=== PATIENT | female | born 1950 | race Hispanic/Latino ===

== ENCOUNTER 2018-11-28 00:07 | Observation (INO) | payer OTHER ==
[2018-11-28 00:52] LABS: BASOPHILS % (AUTO) 0.8 % (0.0-5.0); EOSINOPHILS % (AUTO) 2.9 % (0.0-8.0); HEMATOCRIT 38.6 % (36-48); LYMPHOCYTES % (AUTO) 33.4 % (21.0-51.0); MEAN CORPUSCULAR HEMOGLOBIN 30.5 pg (27.0-33.0); MEAN CORPUSCULAR HGB CONC 34.6 g/dL (32.0-36.0); MEAN CORPUSCULAR VOLUME 88.3 fL (79-99); MONOCYTES % (AUTO) 8.6 % (3.0-13.0); NEUTROPHILS % (AUTO) 54.3 % (40.0-77.0); NUCLEATED RED BLOOD CELLS 0.1 % (0.0-0.19); PLATELET COUNT (AUTO) 206 K/uL (130-400); RED BLOOD CELL COUNT(AUTO) 4.37 MIL/uL (4.00-5.50); WHITE BLOOD COUNT (AUTO) 6.6 K/uL (4.8-10.8)
[2018-11-28 01:10] LABS: CREATININE 0.7 mg/dL (0.5-1.5); POTASSIUM 3.8 mmol/L (3.5-5.1)
[2018-11-28 01:14] LABS: INR 0.97 (0.85-1.15); PARTIAL THROMBOPLASTIN TIME 30.6 SEC (26.3-35.5); PROTHROMBIN TIME 10.2 SEC (9.6-11.6)
[2018-11-28 01:15] LABS: ALBUMIN 3.8 g/dL (3.5-5.0); BILIRUBIN,TOTAL 0.2 mg/dL (0.2-1.0); TOTAL PROTEIN, SERUM 6.8 g/dL (6.0-8.3)
[2018-11-28 01:27] LABS: B-TYPE NATRIURETIC PEPTIDE 19 pg/mL (0-100)
[2018-11-28] MEDS ORDERED: IOHEXOL-350 75 ML VIAL IV ONE (01:54)
[2018-11-28 04:50] LABS: CREATINE KINASE, TOTAL 97 U/L (21-232); MYOGLOBIN 37 ng/mL (10-92); TROPONIN I < 0.04 ng/mL (0.00-0.06)
[2018-11-28 07:30] LABS: CREATINE KINASE, TOTAL 86 U/L (21-232); MYOGLOBIN 38 ng/mL (10-92); TROPONIN I < 0.04 ng/mL (0.00-0.06)
[2018-11-28] MEDS ORDERED: METOPROLOL TARTRATE 25 MG TAB ONE (08:32)
[2018-11-28] MEDS ORDERED: NITROGLYCERIN 1GM/1 INCH PACKET TD ONE (08:32)
[2018-11-28 12:23] LABS: APPEARANCE,URINE Clear (CLEAR); BILIRUBIN,URINE Negative (NEGATIVE); COLOR,URINE Yellow (YELLOW); GLUCOSE, URINE (UA) Negative (NEGATIVE); KETONES,URINE Negative (NEGATIVE); LEUKOCYTE ESTERASE ,URINE Small (NEGATIVE); NITRATE,URINE Negative (NEGATIVE); OCCULT BLOOD,URINE Trace (NEGATIVE); PROTEIN,URINE Negative (NEGATIVE); UROBILINOGEN,URINE 0.2 mg/dL (0.2-1.0)
[2018-11-28 12:30] LABS: BACTERIA,URINE Rare /HPF (None Seen); RBC,URINE 0-1 /HPF (0-1); SQUAMOUS EPITHELIAL CELL,UR Rare /HPF (0-2); WBC,URINE 0-1 /HPF (0-1)
[2018-11-28] MEDS ORDERED: METO-408 PO (13:48)
[2018-11-28] MEDS ORDERED: LEVO25TA9 PO (13:48)
--- NOTE | 2018-11-28 14:06 | NUR ---
SEE DOCTORS ASSESSMENT ON PT BEFORE DISCHARGE.
== END 2018-11-28 14:05 | disposition home or self-care (01) ==
LOC: EDH 00:07 → EDHIP 06:30
PROVIDERS: ADMIT Internal Medicine Cardiovascular Disease; ATTEND Internal Medicine Cardiovascular Disease
DX: R07.89 Other chest pain (principal); I10 Essential (primary) hypertension; E03.9 Hypothyroidism, unspecified; Z79.899 Other long term (current) drug therapy; M35.3 Polymyalgia rheumatica; Z82.49 Family history of ischemic heart disease and other diseases of the circulatory system
CPT/HCPCS: 36415; 71275; 80053; 81001; 82550 ×2; 83874 ×2; 83880; 84484 ×3; 85025; 85378; 85610; 85730; 93005 ×2; 99284; G0378 ×8; Q9967

== ENCOUNTER → 2018-12-03 | Outpatient (CLI) | payer OTHER ==
[~2018-12-03] MED LIST: LEVO25TA9 PO; METO-408 PO
== END | disposition home or self-care (01) ==
LOC: RAH 12:12
PROVIDERS: ATTEND Internal Medicine Cardiovascular Disease
DX: Z13.6 Encounter for screening for cardiovascular disorders (principal)
CPT/HCPCS: 75571

== ENCOUNTER 2023-11-22 05:47 | Observation (INO) | payer MEDICARE, OTHER ==
[~2023-11-22] VITALS: Ht 162.6 cm; Wt 61.2 kg
[2023-11-22] MEDS ORDERED: NIFE20CA9 PO (05:59)
[2023-11-22] MEDS ORDERED: LEVO25CA4 PO (05:59)
[2023-11-22] MEDS ORDERED: LOSA100T59 PO (06:00)
[2023-11-22 06:45] LABS: BASOPHILS # (AUTO) 0.04 K/uL (0.00-0.20); BASOPHILS % (AUTO) 0.6 % (0.0-5.0); EOSINOPHILS # (AUTO) 0.06 K/uL (0.00-0.70); EOSINOPHILS % (AUTO) 0.9 % (0.0-8.0); HEMATOCRIT 36.5 % (36-48); IMMATURE GRANULOCYTE ABSOLUTE 0.01 K/uL (0-1); LYMPHOCYTES # (AUTO) 1.3 K/uL (1.0-4.8); LYMPHOCYTES % (AUTO) 18.8 % (21.0-51.0); MEAN CORPUSCULAR HEMOGLOBIN 29.4 pg (27.0-33.0); MEAN CORPUSCULAR HGB CONC 34.5 g/dL (32.0-36.0); MEAN CORPUSCULAR VOLUME 85.1 fL (79-99); MONOCYTES # (AUTO) 0.4 K/uL (0.1-1.0); MONOCYTES % (AUTO) 6.5 % (3.0-13.0); NEUTROPHILS % (AUTO) 73.1 % (40.0-77.0); PLATELET COUNT (AUTO) 209 K/uL (130-400); RED BLOOD CELL COUNT(AUTO) 4.29 MIL/uL (4.00-5.50); RED CELL DISTRIBUTION WIDTH 13.7 % (11.0-15.5); WHITE BLOOD COUNT (AUTO) 6.8 K/uL (4.8-10.8)
[2023-11-22 06:56] LABS: APPEARANCE,URINE CLEAR (CLEAR); BILIRUBIN,URINE NEGATIVE (NEGATIVE); COLOR,URINE LIGHT-YELLOW (YELLOW); GLUCOSE, URINE (UA) NEGATIVE (NEGATIVE); KETONES,URINE NEGATIVE (NEGATIVE); LEUKOCYTE ESTERASE ,URINE 500 Leu/uL (NEGATIVE); NITRATE,URINE NEGATIVE (NEGATIVE); PH,URINE 6.5 (5.0-8.0); PROTEIN,URINE NEGATIVE (NEGATIVE); UROBILINOGEN,URINE 0.2 mg/dL (0.2-1.0)
[2023-11-22 07:00] LABS: ADD UA MICROSCOPIC YES
[2023-11-22 07:05] LABS: ALBUMIN 3.5 g/dL (3.5-5.0); BILIRUBIN,TOTAL 0.6 mg/dL (0.2-1.0); CREATININE 0.7 mg/dL (0.5-1.0); POTASSIUM 3.6 mmol/L (3.5-5.1); TOTAL PROTEIN, SERUM 7.1 g/dL (6.0-8.3)
[2023-11-22 07:34] LABS: SARS-CoV-2, RNA, NAAT NEGATIVE SARS CoV-2 (NEGATIVE)
[2023-11-22 07:38] LABS: INFLUENZA TYPE A Negative For Type A (NEGATIVE); INFLUENZA TYPE B Negative For Type B (NEGATIVE)
[2023-11-22 07:43] LABS: BACTERIA,URINE RARE /HPF (None Seen); SQUAMOUS EPITHELIAL CELL,UR RARE /HPF (0-2)
[2023-11-22] MEDS ORDERED: IOHEXOL 350 MG/ML 100ML INFUS..BTL IV ONE (08:17)
[2023-11-22] MEDS: LACTATED RINGERS 1000ML 1,095 ML IV ONE (08:19)
[2023-11-22] MEDS: PREDNISONE 20 MG TABLET PO ONE (10:39)
[2023-11-22] MEDS: 0.9%NACL 1000ML 1,000 ML IV SCH (12:59)
[2023-11-22] MEDS: NIFEDIPINE ER 30 MG TAB PO SCH (13:00)
[2023-11-22] MEDS: LOSARTAN 50 MG TABLET PO SCH (13:00)
[2023-11-22] MEDS: CEFTRIAXONE 2GM VIAL IVPB SCH (13:10)
[2023-11-22 13:24] LABS: MAGNESIUM 1.8 mg/dL (1.80-2.40)
[2023-11-22 13:26] LABS: INR 1.01 (0.85-1.15); PROTHROMBIN TIME 10.9 SEC (9.6-11.6)
[2023-11-22] MEDS: PANTOPRAZOLE 40 MG TAB DR PO SCH (13:54)
[2023-11-22 14:15] VITALS: O2SAT 98
[2023-11-22 14:30] VITALS: BP 137/46; PULSE 80; RESP 18
[2023-11-22 14:32] LABS: HEMOGLOBIN A1C 5.9 % (4.0-6.0)
[2023-11-22] MEDS: SODIUM CHLORIDE 3% FOR INHALATION 4 ML/AMP VIAL.NEB IH ONE (17:09)
[2023-11-22] MEDS ORDERED: IpraTROPium/alBUTERol SULFATE 3 ML SOLUTION IH PRN (18:30)
[2023-11-22 20:00] VITALS: BP 127/74; PULSE 87; RESP 18
[2023-11-22 20:15] VITALS: O2SAT 97
[2023-11-22] MEDS: AZITHROMYCIN 500MG+NS 250ML 250 ML IVPB SCH (20:15)
[2023-11-23] VITALS (10 sets, daily range): BP systolic 119–135; BP diastolic 52–68; PULSE 63–91; RESP 16–20; O2SAT 97–98
[2023-11-23] MEDS: BENZONATATE 100 MG CAPSULE PO PRN (05:36)
[2023-11-23 07:38] LABS: CREATININE 0.7 mg/dL (0.5-1.0); POTASSIUM 4.4 mmol/L (3.5-5.1)
[2023-11-23] MEDS: SOLU-MEDROL 40MG VIAL IVP SCH (09:24)
[2023-11-23] MEDS: ENOXAPARIN SODIUM 30 MG/0.3 ML SQ SCH (09:24)
[2023-11-23] MEDS: LOSARTAN 50 MG TABLET PO SCH (09:24)
[2023-11-23 10:13] LABS: RHEUMATOID ARTHRITIS FACTOR 10.7 IU/mL (<14.0)
[2023-11-23] MEDS: SODIUM CHLORIDE 3% FOR INHALATION 4 ML/AMP VIAL.NEB IH ONE (10:59)
[2023-11-24 04:00] VITALS: BP 125/69; PULSE 71; RESP 16
[2023-11-24 05:47] LABS: BASOPHILS # (AUTO) 0.01 K/uL (0.00-0.20); BASOPHILS % (AUTO) 0.1 % (0.0-5.0); EOSINOPHILS # (AUTO) 0.01 K/uL (0.00-0.70); EOSINOPHILS % (AUTO) 0.1 % (0.0-8.0); HEMATOCRIT 35.9 % (36-48); IMMATURE GRANULOCYTE ABSOLUTE 0.02 K/uL (0-1); LYMPHOCYTES # (AUTO) 0.9 K/uL (1.0-4.8); LYMPHOCYTES % (AUTO) 9.4 % (21.0-51.0); MEAN CORPUSCULAR HEMOGLOBIN 29.8 pg (27.0-33.0); MEAN CORPUSCULAR VOLUME 87.6 fL (79-99); MONOCYTES # (AUTO) 0.5 K/uL (0.1-1.0); NEUTROPHILS # (AUTO) 8.4 K/uL (1.8-7.7); NEUTROPHILS % (AUTO) 85.2 % (40.0-77.0); PLATELET COUNT (AUTO) 194 K/uL (130-400); RED CELL DISTRIBUTION WIDTH 13.9 % (11.0-15.5); WHITE BLOOD COUNT (AUTO) 9.9 K/uL (4.8-10.8)
[2023-11-24 06:09] LABS: ALBUMIN 3.2 g/dL (3.5-5.0); BILIRUBIN,TOTAL 0.3 mg/dL (0.2-1.0); CREATININE 0.8 mg/dL (0.5-1.0); MAGNESIUM 1.8 mg/dL (1.80-2.40); POTASSIUM 4.5 mmol/L (3.5-5.1); TOTAL PROTEIN, SERUM 6.5 g/dL (6.0-8.3)
[2023-11-24 06:35] VITALS: PULSE 89; RESP 19; O2SAT 97
[2023-11-24 08:00] VITALS: BP 128/60; PULSE 68; RESP 18; O2SAT 98
[2023-11-24 12:00] VITALS: BP 137/66; PULSE 78; RESP 18
[2023-11-24] MEDS ORDERED: MAGNESIUM 2GM PREMIX 50ML 50 ML IV PRN (12:30)
[2023-11-24] MEDS: MAGNESIUM 2GM PREMIX 50ML 50 ML IV PRN (13:52)
[2023-11-24] MEDS ORDERED: METH4TAB3 PO (14:27)
[2023-11-26 15:15] LABS: ATYPICAL P-ANCA AB <1:20 titer (Neg:<1:20); CYTOPLASMIC (C-ANCA) AB, IGG <1:20 titer (Neg:<1:20)
[2023-11-27 15:14] LABS: ASPERGILLUS FLAVUS AB QUAN-DID Negative (Neg:<1:1); ASPERGILLUS FUMIGATUS AB-DID Negative (Neg:<1:1); BLASTOMYCES ABS QN DID Negative (Neg:<1:1)
== END 2023-11-24 15:30 | disposition home or self-care (01) ==
LOC: EDH 05:47 → EDHIP 12:50 → INTOOBSV 12:50 → 3CH 14:05
PROVIDERS: ADMIT Internal Medicine; ATTEND Internal Medicine
DX: N39.0 Urinary tract infection, site not specified (principal); E86.1 Hypovolemia; E87.1 Hypo-osmolality and hyponatremia; I10 Essential (primary) hypertension; E78.5 Hyperlipidemia, unspecified; E44.1 Mild protein-calorie malnutrition; E03.9 Hypothyroidism, unspecified; K21.9 Gastro-esophageal reflux disease without esophagitis; L80 Vitiligo; M35.3 Polymyalgia rheumatica; Z79.899 Other long term (current) drug therapy; Z98.890 Other specified postprocedural states; Z20.822 Contact with and (suspected) exposure to COVID-19
CPT/HCPCS: 96361 ×3; 96365; 96367; 99285; 83036; 84443; 82550; 83735 ×2; 80053 ×2; 85025 ×2; 85610; 85730; 85651; 87040; 87071; 87086; 87205; 87804 ×2; 87116 ×3; 86038; 86606 ×4; 87206 ×3; 86255 ×3; 87556; 86612; 86140; 86431; 81001; 36415 ×3; 87635; 70220; 71250; 74177; 94640; 86200; 84145; 96372 ×2; 96366 ×2; 80048; 82306; 84425; 82607; 96375; G0378 ×49; J0696 ×3; J0456 ×2; Q9967; J1650 ×2; J2919 ×3; J3475; 86215; 86235; 86480